=== PATIENT | male | born 1975 | race Caucasian/White ===

== ENCOUNTER 2019-03-27 12:59 | Emergency (ER) | payer MEDICAID ==
[~2019-03-27] VITALS: Ht 175.3 cm; Wt 72.6 kg
[~2019-03-27 12:59] MED LIST: AZULFIDINE500 M1 PO; ONDANSETRON HCL4 M2 PO; OXYCODONE HCL 55 MG PO; PREDNISONE 10 M10 M1 PO; PREDNISONE 10 M10 MG PO; XARELTO10 MG PO
[2019-03-27 13:44] VITALS: BP 126/78
== END 2019-03-27 13:45 | disposition home or self-care (01) ==
LOC: M.ERS 12:59
DX: Z43.3 Encounter for attention to colostomy (principal); Z76.0 Encounter for issue of repeat prescription; K58.9 Irritable bowel syndrome, unspecified